=== PATIENT | female | born 1990 | race Caucasian/White ===

== ENCOUNTER 2019-04-07 01:02 | Emergency (ER) | payer MEDICAID ==
[~2019-04-07] VITALS: Ht 172.7 cm; Wt 99.7 kg
[~2019-04-07 01:02] MED LIST: ALBU8.5H5 INH; ASPI1TAB31 PO; BCP; QUET150T2 PO; SERT50TA PO
[2019-04-07 01:04] VITALS: BP 115/67
[2019-04-07] MEDS ORDERED: KETOROLAC 60 MG/2 ML ONE (01:30)
[2019-04-07] MEDS ORDERED: METHOCARBAMOL 750 MG TABLET ONE (01:30)
[2019-04-07] MEDS ORDERED: OXYcodone/APAP 10/325MG TABLET PO ONE (01:30)
[2019-04-07] MEDS ORDERED: METHOCARBAMOL 750 MG TABLET PO ONE (01:30)
[2019-04-07] MEDS ORDERED: KETOROLAC 30 MG/1 ML IM ONE (01:30)
[2019-04-07] MEDS ORDERED: OXYcodone/APAP 10/325MG TABLET ONE (01:31)
--- NOTE | 2019-04-07 01:39 | NUR ---
INITIAL CONTACT WITH PT. ASSESSMENT DONE AND MEDS GIVEN CHARTED, 5 RIGHTS VERIFIED.
--- NOTE | 2019-04-07 02:14 | NUR ---
PT RESTING QUIETLY ON GURNEY. STATES PAIN 06/11. PT UP FOR RE EVALUATION.
--- NOTE | 2019-04-07 02:35 | NUR ---
PT DC'D HOME WITH RX X 2, WORK NOTE AND REFERRAL. PT UNDERSTOOD INSTRUCTIONS. PT AND FAMILY MEMBER TO DC DESK, PT GAIT STEADY.
== END 2019-04-07 02:38 | disposition home or self-care (01) ==
LOC: ED 02:30
DX: S39.012A Strain of muscle, fascia and tendon of lower back, initial encounter (principal); J45.909 Unspecified asthma, uncomplicated; X58.XXXA Exposure to other specified factors, initial encounter; Y93.89 Activity, other specified; Y92.89 Other specified places as the place of occurrence of the external cause; Y99.8 Other external cause status
CPT/HCPCS: 96372; 99283; J1885

== ENCOUNTER 2020-01-27 11:26 | Emergency (ER) | payer MEDICAID ==
[~2020-01-27] VITALS: Ht 172.7 cm; Wt 96.5 kg
[2020-01-27 12:55] LABS: BASOPHILS % (AUTO) 2 % (0-1); EOSINOPHILS % (AUTO) 2 % (1-7); LYMPHOCYTES % (AUTO) 30 % (22-44); MEAN CORPUSCULAR HEMOGLOBIN 18.7 pg (27.0-34.8); MEAN PLATELET VOLUME 8.4 fL (7.4-10.4); MONOCYTES % (AUTO) 9 % (2-9); NEUTROPHILS % (AUTO) 59 % (42-75); PLATELET COUNT 253 x10^3/uL (130-400); RED BLOOD COUNT 4.29 x10^6/uL (3.82-5.3); RED CELL DISTRIBUTION WIDTH 19.4 % (9.6-15.2)
[2020-01-27] MEDS ORDERED: OXYcodone/APAP 5/325MG TABLET PO ONE (13:00)
[2020-01-27 13:05] LABS: ALANINE AMINOTRANSFERASE 12 U/L (12-78); ANION GAP 7 mmol/L (5-15); CALCIUM 8.7 mg/dL (8.5-10.1); CHLORIDE 113 mmol/L (98-107); CREATININE 0.82 mg/dL (0.55-1.02)
[2020-01-27 13:10] LABS: ANISOCYTOSIS 1+; MD MORPH REVIEW ONLY; MEAN CORPUSCULAR HGB CONC 29.9 g/dL (32.4-35.8)
[2020-01-27 13:11] LABS: ALKALINE PHOSPHATASE 53 U/L (45-117); BILIRUBIN,TOTAL 0.2 mg/dL (0.2-1.0); HYPOCHROMIA 2+; MICROCYTOSIS 2+; OVALOCYTES 1+; TOTAL PROTEIN 7.6 g/dL (6.4-8.2)
[2020-01-27 13:13] LABS: <PLATELET ESTIMATE> ADEQUATE; <PLT MORPHOLOGY> NORMAL PLT MORPH; TEAR DROPS 1+
--- NOTE | 2020-01-27 13:22 | NUR ---
PT C/O RIGHT LOWER ABD PAIN THAT STARTED THIS AM, 12/11. PT SAYS THE PAIN WORSENS WITH MOVEMENT. PT DENIES N/V AND DIARRHEA.
[2020-01-27] MEDS ORDERED: OXYcodone/APAP 5/325MG TABLET ONE (13:30)
--- NOTE | 2020-01-27 13:33 | NUR ---
PT MEDICATED PER MAR
[2020-01-27 14:00] VITALS: BP 110/70
[2020-01-27 14:05] LABS: MICROSCOPIC NOT IND
--- NOTE | 2020-01-27 14:48 | NUR ---
PT REC'VD DISCHARGE INSTRUCTIONS AND EDUCATION. PT HAD NO FURTHER QUESTIONS. PT AMBULATED TO DC AREA, STEADY GAIT.
== END 2020-01-27 14:50 | disposition home or self-care (01) ==
LOC: ED 13:04
DX: R10.13 Epigastric pain (principal); J45.909 Unspecified asthma, uncomplicated; G43.909 Migraine, unspecified, not intractable, without status migrainosus
CPT/HCPCS: 36415; 76700; 80053; 81003; 83690; 84703; 85025; 99284